=== PATIENT | male | born 1995 | race Two or more races ===

== ENCOUNTER → 2021-08-07 | Outpatient (CLI) | payer OTHER ==
--- NOTE | 2021-08-07 13:04 | REP ---
INDICATION: RT RIB/CHEST PAIN COMPARISON: None TECHNIQUE: Axial noncontrast images from the thoracic inlet to the upper abdomen with coronal and sagittal reformations. This CT examination was performed using the following dose reduction techniques: Automated exposure control, adjustment of mA and/or kv according to the patient's size, and use of iterative reconstruction technique. FINDINGS: The bilateral lung [place] are well aerated and clear. No consolidation, suspicious nodule or mass. No pleural effusion. No pneumothorax. Tracheobronchial tree is patent. The mediastinum is normal. No hilar or mediastinal adenopathy is identified. There are mildly prominent lymph nodes in the left axilla which should be correlated clinically. Surrounding musculoskeletal structures are intact and normal. IMPRESSION: 1. Essentially normal noncontrast chest CT. 2. Mildly prominent asymmetric left axillary lymph nodes may warrant clinical correlation. <Electronically signed by Daryn Xiong > 08/07/21 1300
== END ==
LOC: M RAD 09:43
DX: R07.9 Chest pain, unspecified (principal)